=== PATIENT | female | born 2000 | race Caucasian/White ===

== ENCOUNTER 2019-08-29 10:05 | Emergency (ER) | payer MEDICAID, MEDICARE ==
--- NOTE | 2019-08-29 12:41 | EDM.PDOC ---
ED HPI GENERAL MEDICAL PROBLEM - General Chief Complaint: General Stated Complaint: ARM TINGLING Time Seen by Provider: 08/29/19 10:30 Source of Information: Reports: Patient History Limitations: Reports: No Limitations - History of Present Illness INITIAL COMMENTS - FREE TEXT/NARRATIVE: This is a 19yo F here for left forearm tingling and numbness. She notes the symptoms started recently and has gotten worse with working and use of the arm. She has had difficulty with grasping at times but denies weakness of the arm. She is here with a friend as she has difficulty explaining her problems at times. She was told to go to the ER or an ambulance would be called due to her symptoms. She denies any weakness or slurring of speech. No headache or pain and no prior episodes of numbness. Patient states she does feel dizzy at times but very infrequent. No changes in vision. Onset: Unknown/Unsure Duration: Constant Severity: Mild Improves with: Reports: None Worsens with: Reports: Movement Associated Symptoms: Reports: No Other Symptoms Left Lower Arm Pain Score (Numeric/FACES): 3 - Related Data Allergies Allergy/AdvReac Type Severity Reaction Status Date / Time Penicillins Allergy Cannot Verified 08/29/19 10:39 Remember pyrithione zinc Allergy Cannot Verified 08/29/19 10:39 Remember Home Meds: Home Meds Escitalopram [Lexapro] 10 mg PO DAILY 08/29/19 [History] levETIRAcetam [Keppra] 1 tab PO BID 08/29/19 [History] Social & Family History - Tobacco Use Smoking Status *Q: Never Smoker ED ROS GENERAL - Review of Systems Review Of Systems: Comprehensive ROS is negative, except as noted in HPI. ED EXAM, GENERAL - Physical Exam Exam: See Below Exam Limited By: No Limitations General Appearance: Alert, WD/WN, No Apparent Distress Eye Exam: Bilateral Eye: EOMI, PERRL Ears: Normal External Exam Nose: Normal Inspection Throat/Mouth: Normal Inspection Head: Atraumatic, Normocephalic Neck: Normal Inspection Respiratory/Chest: No Respiratory Distress, Lungs Clear, Normal Breath Sounds Cardiovascular: Normal Peripheral Pulses, Regular Rate, Rhythm GI/Abdominal: Normal Bowel Sounds Extremities: Normal Inspection Neurological: Sensory/Motor Deficit (left forearm numbness, temp intact, propioception of the forearm absent, no weakness, no motor deficits), Other (Neuro exam intact except for left forearm issues.) Skin Exam: Warm, Dry, Intact Course - Vital Signs Last Recorded V/S: Last Vital Signs Temp 37.4 C 08/29/19 10:10 Pulse 90 08/29/19 10:10 Resp 16 08/29/19 10:10 BP 122/80 08/29/19 10:10 Pulse Ox 99 08/29/19 10:10 Departure - Departure Time of Disposition: 11:00 Disposition: Home, Self-Care 01 Condition: Fair Clinical Impression: Numbness of upper extremity - Discharge Information Referrals: PCP,None [Primary Care Provider] - Forms: ED Department Discharge Additional Instructions: Continue taking previously prescribed Escitalopram as directed. Stop taking prescribed Keppra. Drink plenty of fluids and get plenty of rest. Diet and activity as tolerated. Limit use of affected left arm for next week, including no work for this time. Follow up in clinic in [address] Quijano. Return to ER should numbness or weakness worsen in any way. Call with any questions. Sepsis Event Note (ED) - Evaluation Sepsis Screening Result: No Definite Risk - Focused Exam Vital Signs: Vital Signs Temp Pulse Resp BP Pulse Ox 08/29/19 10:10 37.4 C 90 16 122/80 99 - Problem List & Annotations (1) Numbness of upper extremity SNOMED Code(s): 219101867 Code(s): R20.0 - ANESTHESIA OF SKIN Status: Acute Current Visit: Yes - Problem List Review Problem List Initiated/Reviewed/Updated: Yes - Assessment/Plan Plan: Counseled on close monitoring and management. Discussed f/u in ER if symptoms worsen. Discussed f/u in clinic for recheck. Patient will be restricted from work until f/u and resolution of symptoms. Discussed further management and rtc/ ER as directed. Counseled on supportive and conservative care at this time. Consideration of differential - carpel tunnel, neuropathy, and overuse injury. There are no other symptoms indicating CVA or other neurological disorder.
== END 2019-08-29 10:48 | disposition home or self-care (01) ==
LOC: EDBD 10:05 → LB.ED 10:05
DX: R20.0 Anesthesia of skin (principal); Z88.0 Allergy status to penicillin; Z79.899 Other long term (current) drug therapy
CPT/HCPCS: 99283